=== PATIENT | female | born 1995 | race Hispanic/Latino ===

== ENCOUNTER → 2018-03-17 | Outpatient (CLI) | payer BC ==
--- NOTE | 2018-03-17 18:30 | Diagnostic Imaging Report ---
EXAM: Transabdominal Pelvic Ultrasound INDICATION: Dysmenorrhea, menorrhagia \S\DYSMENORRHEA; METRORRHAGIA COMPARISON: None TECHNIQUE: Grayscale transverse and sagittal transabdominal images were obtained of the pelvis. CLINICAL HISTORY: 22 year old G1; last menstrual period: 03/14/2018. FINDINGS: Uterus: Orientation: Normal Size: 7.5 x 2.6 x 3.8 cm, Normal Mass: None Cervix: Not clearly visualized Endometrium: Thickness: 0.3 cm, Normal. Appearance: Homogeneous echotexture without focal thickening. Right ovary: Size: 3.5 x 2.6 x 2.2 cm Mass/Cyst: None Left ovary: Size: 3.2 x 1.7 x 1.9 cm Mass/Cyst: None Adnexa: Normal Cul-de-sac: No free fluid Focal hypoechoic area in the expected location of the vagina, which indents the posterior aspect of the bladder. No increased vascularity. IMPRESSION: 1. Indeterminate focal hypoechoic area in the expected location of the vagina, which indents the posterior aspect of the bladder. No further characterization can be performed, as no transvaginal pelvic ultrasound was ordered. 2. Otherwise, unremarkable exam. Signed by: Dr. Lencho Torres M.D. on 03/17/2018 6:27 PM
== END ==
LOC: US 17:05
PROVIDERS: ATTEND Family Medicine
DX: N94.6 Dysmenorrhea, unspecified (principal); N92.1 Excessive and frequent menstruation with irregular cycle
CPT/HCPCS: 76856